=== PATIENT | male | born 1965 | race Caucasian/White ===

== ENCOUNTER 2020-11-25 08:09 | Emergency (ER) | payer OTHER ==
[~2020-11-25] VITALS: Ht 175.3 cm; Wt 83.9 kg
== END 2020-11-25 10:16 | disposition home or self-care (01) ==
LOC: ER 08:09
DX: U07.1 COVID-19 (principal); I10 Essential (primary) hypertension
CPT/HCPCS: 99283

== ENCOUNTER 2021-11-24 08:32 | Emergency (ER) | payer OTHER ==
[~2021-11-24] VITALS: Ht 175.3 cm; Wt 94.8 kg
[2021-11-24 10:05] LABS: BASOPHILS ABSOLUTE AUTO 0.04 K/mm3 (0.00-0.23); BASOPHILS PERCENT AUTO 1 % (0-2); EOSINOPHILS PERCENT AUTO 4 % (0-6); Hematocrit 48.1 % (37.0-53.0); Hemoglobin 16.2 g/dL (13.5-17.5); IMMATURE GRAN ABSOLUTE AUTO 0.01 K/mm3 (0.00-0.10); IMMATURE GRAN PERCENT AUTO 0 % (0-1); LYMPHOCYTES ABSOLUTE AUTO 2.22 K/mm3 (0.84-5.20); LYMPHOCYTES PERCENT AUTO 41 % (21-46); MONOCYTES ABSOLUTE AUTO 0.46 K/mm3 (0.16-1.47); MONOCYTES PERCENT AUTO 8 % (4-13); Mean Corpuscular HGB 30.2 pg (26.0-34.0); Mean Corpuscular HGB Conc 33.7 g/dL (31.5-36.5); Mean Corpuscular Volume 90 fL (80-100); NEUTROPHILS ABSOLUTE AUTO 2.55 K/mm3 (1.96-9.15); NEUTROPHILS PERCENT AUTO 47 % (41-73); Platelet Count 196 K/mm3 (150-400); RDW Coefficient Variation 14.3 % (11.7-14.2); RDW Standard Deviation 47.3 fL (35.1-46.3); Red Blood Cell Count 5.36 M/mm3 (4.30-5.90); White Blood Cell Count 5.48 K/mm3 (4.00-11.30)
[2021-11-24 10:26] LABS: Albumin, Blood 3.7 g/dL (3.4-5.0); Albumin/Globulin Ratio 0.9 (0.8-1.8); Bilirubin, Total 0.4 mg/dL (0.1-1.0); Calcium, Blood 9.5 mg/dL (8.5-10.1); Globulin, Blood 4.1 g/dL (2.2-4.0); Potassium, Blood 3.8 mmol/L (3.5-5.5); Total Protein, Blood 7.8 g/dL (6.4-8.2)
[2021-11-24] MEDS ORDERED: AMLO10 PO (11:13)
[2021-11-24] MEDS ORDERED: OMEP20ER PO (11:13)
[2021-11-24] MEDS ORDERED: ATOR10 PO (11:13)
[2021-11-24] MEDS ORDERED: PROP120ER PO (11:13)
[2021-11-24] MEDS ORDERED: CHLO25 PO ×4 (13:29→17:08)
[2021-11-24] MEDS ORDERED: B-1100 M1 PO ×2 (13:30→13:34)
[2021-11-24] MEDS ORDERED: FOLI1 PO ×2 (13:30→13:34)
[2021-11-24] MEDS ORDERED: ONDA4ODT MM ×2 (13:30→13:34)
== END 2021-11-24 13:45 | disposition home or self-care (01) ==
LOC: ER 08:32
PROVIDERS: Student in an Organized Health Care Education/Training Program
DX: F10.139 Alcohol abuse with withdrawal, unspecified (principal); I10 Essential (primary) hypertension; F41.9 Anxiety disorder, unspecified; R22.2 Localized swelling, mass and lump, trunk; Z71.41 Alcohol abuse counseling and surveillance of alcoholic
CPT/HCPCS: 36415; 80053; 85025; 93005; 93010; A9270; G0480; J2405

== ENCOUNTER 2023-04-05 12:22 | Emergency (ER) | payer OTHER ==
[~2023-04-05] VITALS: Ht 175.3 cm; Wt 91.2 kg
[~2023-04-05 12:22] MED LIST: AMLO10 PO; ATOR10 PO; B-1100 M1 PO; CHLO25 PO; FOLI1 PO; OMEP20ER PO; ONDA4ODT MM; PROP120ER PO
[2023-04-05 12:59] LABS: BASOPHILS ABSOLUTE AUTO 0.03 K/mm3 (0.00-0.23); BASOPHILS PERCENT AUTO 1 % (0-2); EOSINOPHILS ABSOLUTE AUTO 0.25 K/mm3 (0.00-0.68); EOSINOPHILS PERCENT AUTO 5 % (0-6); Hematocrit 44.6 % (37.0-53.0); Hemoglobin 15.5 g/dL (13.5-17.5); IMMATURE GRAN PERCENT AUTO 0 % (0-1); LYMPHOCYTES PERCENT AUTO 35 % (21-46); MONOCYTES ABSOLUTE AUTO 0.44 K/mm3 (0.16-1.47); MONOCYTES PERCENT AUTO 9 % (4-13); Mean Corpuscular HGB Conc 34.8 g/dL (31.5-36.5); Mean Corpuscular Volume 86 fL (80-100); Mean Platelet Volume 9.9 fL (9.1-12.4); NEUTROPHILS ABSOLUTE AUTO 2.67 K/mm3 (1.96-9.15); NEUTROPHILS PERCENT AUTO 51 % (41-73); Platelet Count 176 K/mm3 (150-400); RDW Coefficient Variation 13.4 % (11.7-14.2); RDW Standard Deviation 43.1 fL (35.1-46.3); Red Blood Cell Count 5.17 M/mm3 (4.30-5.90); White Blood Cell Count 5.19 K/mm3 (4.00-11.30)
[2023-04-05 13:25] LABS: Albumin, Blood 3.9 g/dL (3.4-5.0); Bilirubin, Total 0.5 mg/dL (0.1-1.0); Bun/Creatinine Ratio 17.5 (12.0-20.0); Calcium, Blood 8.7 mg/dL (8.5-10.1); Creatinine, Blood 0.91 mg/dL (0.60-1.20); Globulin, Blood 3.9 g/dL (2.2-4.0); Potassium, Blood 4.2 mmol/L (3.5-5.5); Total Protein, Blood 7.8 g/dL (6.4-8.2)
[2023-04-05 13:39] VITALS: BP 112/76
== END 2023-04-05 14:25 | disposition home or self-care (01) ==
LOC: ER 12:22
PROVIDERS: Physician Assistant
DX: S29.012A Strain of muscle and tendon of back wall of thorax, initial encounter (principal); X58.XXXA Exposure to other specified factors, initial encounter; Z79.899 Other long term (current) drug therapy; I10 Essential (primary) hypertension
CPT/HCPCS: 71046; 80053; 84484; 85025; 85379; 93005; 93010; 99284-25

== ENCOUNTER 2024-06-22 12:37 | Emergency (ER) | payer SELFPAY ==
[~2024-06-22] VITALS: Ht 175.3 cm; Wt 93.4 kg
[2024-06-22 12:46] VITALS: BP 139/95
[2024-06-22 13:19] LABS: BASOPHILS ABSOLUTE AUTO 0.03 K/mm3 (0.00-0.23); BASOPHILS PERCENT AUTO 1 % (0-2); EOSINOPHILS ABSOLUTE AUTO 0.09 K/mm3 (0.00-0.68); EOSINOPHILS PERCENT AUTO 2 % (0-6); Hematocrit 45.8 % (37.0-53.0); IMMATURE GRAN ABSOLUTE AUTO 0.02 K/mm3 (0.00-0.10); IMMATURE GRAN PERCENT AUTO 0 % (0-1); LYMPHOCYTES ABSOLUTE AUTO 1.67 K/mm3 (0.84-5.20); LYMPHOCYTES PERCENT AUTO 30 % (21-46); MONOCYTES PERCENT AUTO 12 % (4-13); Mean Corpuscular HGB 30.8 pg (26.0-34.0); Mean Corpuscular HGB Conc 34.9 g/dL (31.5-36.5); Mean Corpuscular Volume 88 fL (80-100); NEUTROPHILS ABSOLUTE AUTO 3.15 K/mm3 (1.96-9.15); NEUTROPHILS PERCENT AUTO 56 % (41-73); Platelet Count 167 K/mm3 (150-400); RDW Coefficient Variation 13.9 % (11.7-14.2); RDW Standard Deviation 45.1 fL (35.1-46.3); Red Blood Cell Count 5.19 M/mm3 (4.30-5.90); White Blood Cell Count 5.66 K/mm3 (4.00-11.30)
[2024-06-22 14:07] LABS: Bilirubin, Total 0.8 mg/dL (0.1-1.0); Bun/Creatinine Ratio 15.9 (12.0-20.0); Calcium, Blood 9.1 mg/dL (8.5-10.1); Creatinine, Blood 0.88 mg/dL (0.60-1.20); Globulin, Blood 3.9 g/dL (2.2-4.0); Potassium, Blood 3.5 mmol/L (3.5-5.5); Total Protein, Blood 7.9 g/dL (6.4-8.2)
== END 2024-06-22 13:45 | disposition left against medical advice (07) ==
LOC: ER 12:37
PROVIDERS: Physician Assistant
DX: K92.0 Hematemesis (principal); K92.1 Melena; Z53.29 Procedure and treatment not carried out because of patient's decision for other reasons
CPT/HCPCS: 80053; 85025; 99281

== ENCOUNTER 2025-04-07 01:00 | Emergency (ER) | payer OTHER ==
[~2025-04-07] VITALS: Ht 175.3 cm; Wt 86.6 kg
[2025-04-07 01:08] VITALS: BP 118/79
[2025-04-07] MEDS ORDERED: Robaxin750 MG PO (02:18)
== END 2025-04-07 02:29 | disposition home or self-care (01) ==
LOC: ER 01:00
DX: S46.911A Strain of unspecified muscle, fascia and tendon at shoulder and upper arm level, right arm, initial encounter (principal); W18.30XA Fall on same level, unspecified, initial encounter; I10 Essential (primary) hypertension; Z79.899 Other long term (current) drug therapy
CPT/HCPCS: 73030; 99283-25